=== PATIENT | male | born 1980 | race Caucasian/White ===

== ENCOUNTER 2019-09-21 12:31 | Emergency (ER) | payer OTHER ==
[~2019-09-21] VITALS: Ht 177.8 cm; Wt 74.8 kg
== END 2019-09-21 14:45 | disposition home or self-care (01) ==
LOC: ER 12:31
DX: B02.8 Zoster with other complications (principal)

== ENCOUNTER 2020-12-07 09:09 | Outpatient (CLI) | payer OTHER | END 2020-12-07 15:11 | disposition home or self-care (01) | LOC: OFIC 805 09:09 | PROVIDERS: ATTEND Otolaryngology | DX: H74.8X1 Other specified disorders of right middle ear and mastoid (principal) ==

== ENCOUNTER 2021-03-17 14:02 | Emergency (ER) | payer OTHER ==
[~2021-03-17] VITALS: Ht 175.3 cm; Wt 77.1 kg
[2021-03-17] MEDS ORDERED: ZYRTEC10 M3 PO (14:19)
[2021-03-17] MEDS ORDERED: CARAFATE1 GM PO (18:53)
[2021-03-17] MEDS ORDERED: PROTONIX20 MG PO (18:53)
== END 2021-03-17 19:18 | disposition home or self-care (01) ==
LOC: ER 14:02
DX: R10.84 Generalized abdominal pain (principal)

== ENCOUNTER 2021-03-31 07:23 | Emergency (ER) | payer OTHER ==
[~2021-03-31] VITALS: Ht 175.3 cm; Wt 76.7 kg
[~2021-03-31 07:23] MED LIST: CARAFATE1 GM PO; PROTONIX20 MG PO; ZYRTEC10 M3 PO
[2021-03-31] MEDS ORDERED: CHLORDIAZEPOXI1 EACH PO (15:38)
[2021-03-31] MEDS ORDERED: PEPCID AC20 MG PO (15:38)
== END 2021-03-31 19:07 | disposition home or self-care (01) ==
LOC: ER 07:23
DX: K58.9 Irritable bowel syndrome, unspecified (principal); R10.12 Left upper quadrant pain

== ENCOUNTER 2021-04-27 06:20 | Day surgery (SDC) | payer OTHER ==
[~2021-04-27 06:20] MED LIST changes: +CHLORDIAZEPOXI1 EACH PO; +PEPCID AC20 MG PO
[2021-05-28] MEDS ORDERED: PROTONIX40 MG PO (05:57)
[2021-05-28] MEDS ORDERED: PEPCID40 MG PO (05:57)
== END 2021-04-27 09:50 | disposition home or self-care (01) ==
LOC: AMB-ENDOS 06:20
PROVIDERS: ATTEND Surgery
DX: D12.2 Benign neoplasm of ascending colon (principal); D13.1 Benign neoplasm of stomach; D13.2 Benign neoplasm of duodenum; K64.8 Other hemorrhoids; K44.9 Diaphragmatic hernia without obstruction or gangrene; Z20.822 Contact with and (suspected) exposure to COVID-19

== ENCOUNTER → 2021-05-28 | Emergency (ER) | payer OTHER ==
[~2021-05-28] VITALS: Ht 175.3 cm; Wt 70.3 kg
[~2021-05-28] MED LIST changes: +PEPCID40 MG PO; +PROTONIX40 MG PO
== END | disposition home or self-care (01) ==
LOC: ER 02:38
DX: K30 Functional dyspepsia (principal)

== ENCOUNTER 2021-10-01 06:00 | Day surgery (SDC) | payer OTHER ==
[~2021-10-01 06:00] MED LIST changes: +ACID REDUCER20 M1 PO
[2021-10-01] MEDS ORDERED: ZOFRAN8 MG PO (10:05)
[2021-10-01] MEDS ORDERED: CILOXAN5 ML OTIC (10:05)
[2021-10-01] MEDS ORDERED: CEPHALEXIN500 M1 PO (10:05)
== END 2021-10-01 14:20 | disposition home or self-care (01) ==
LOC: CIR.AMB 06:00
PROVIDERS: ATTEND Otolaryngology Otology & Neurotology
DX: H80.01 Otosclerosis involving oval window, nonobliterative, right ear (principal); H90.11 Conductive hearing loss, unilateral, right ear, with unrestricted hearing on the contralateral side; Z20.822 Contact with and (suspected) exposure to COVID-19

== ENCOUNTER 2021-10-13 14:45 | Outpatient (CLI) | payer OTHER ==
[~2021-10-13 14:45] MED LIST changes: +CEPHALEXIN500 M1 PO; +CILOXAN5 ML OTIC; +ZOFRAN8 MG PO
== END 2021-10-13 14:50 | disposition home or self-care (01) ==
LOC: PPH VACUNA 14:45
PROVIDERS: ATTEND Emergency Medicine Pediatric Emergency Medicine
DX: Z23 Encounter for immunization (principal)